=== PATIENT | female | born 1980 | race African-American/Black ===

== ENCOUNTER 2018-04-01 22:42 | Emergency (ER) | payer BC ==
[~2018-04-01] VITALS: Ht 162.6 cm; Wt 107.6 kg
[2018-04-01 23:55] LABS: HEMATOCRIT 39.9 % (36.0-46.0); HEMOGLOBIN 14.3 G/DL (11.9-15.5); MCH 31.2 PG (29.0-34.0); MCHC 35.8 G/DL (30.0-36.0); MCV 86.9 FL (83-99); PLATELET COUNT 234 K/uL (156-360); RBC DIS.WIDTH-CV 11.9 % (11.8-14.6); RBC DIS.WIDTH-SD 37.8 % (39-53); RED BLOOD COUNT 4.59 M/uL (3.80-5.20)
[2018-04-02 00:04] LABS: CHLORIDE 107 mEq/L (99-109); POTASSIUM 3.9 mEq/L (3.7-5.4); SODIUM 139 mEq/L (136-147)
[2018-04-02 00:05] LABS: GLUCOSE 97 mg/dL (70-99)
[2018-04-02 00:09] LABS: CREATININE 0.9 mg/dL (0.6-1.3); GFR ESTIMATE (CALCULATED) > 59 mL/min/
[2018-04-02 00:10] LABS: UREA NITROGEN (BUN) 11 mg/dL (9-23)
[2018-04-02 00:15] LABS: TROP-I INTERPRETATION NEGATIVE; TROPONIN-I < 0.01 ng/mL (0.0-0.30)
[2018-04-02 02:01] LABS: QUANTITATIVE HCG < 4.0 MIU/ML
[2018-04-02] MEDS ORDERED: ZANTAC150 MG PO (04:49)
[2018-04-02] MEDS ORDERED: TYLENOL WITH C1 EACH PO (04:49)
[2018-04-02] MEDS ORDERED: MOTRIN800 MG PO (04:49)
[2018-04-02 05:14] VITALS: BP 120/86
== END 2018-04-02 05:19 | disposition home or self-care (01) ==
LOC: EME 22:42
DX: R07.9 Chest pain, unspecified (principal); R07.1 Chest pain on breathing; I44.0 Atrioventricular block, first degree
CPT/HCPCS: 71046; 71275; 80048; 84484; 84702; 85027; 93005; 99281; 99285; J3010